=== PATIENT | male | born 1945 | race Caucasian/White ===

== ENCOUNTER 2016-05-17 22:14 | Emergency (ER) | payer MEDICARE, OTHER ==
[~2016-05-17 22:14] MED LIST: AGGRENOX 25 MG-1 CAP PO; ALEVE220 MG; AMLODIPINE BESY10 MG PO; AMOX TR-K CLV1 EAC4 PO; ARIXTRA2.5 MG/0.5 SQ; ASPIR 8181 MG PO; ASPIR-MOX 325325 M1 PO; ASPIRIN EC81 M1 PO; ASPIRIN325 M3 PO; ASPIRIN325 MG PO; ATORVASTATIN CA80 M1 PO; AUGMENTIN 875-1 EAC2 PO; BABY ASPIRIN81 MG PO; BACTRIM DS TAB1 EAC1 PO; BAYER CHILDREN'81 MG; CELEXA20 M1 PO; CELEXA20 M2 PO; CELEXA20 MG PO; CELEXA40 M1 PO; CLINDAMYCIN HC300 MG PO; COMBIVENT1 PUFF INH; COUMADIN3 MG PO; COUMADIN6 MG PO; COZAAR100 M1 PO; COZAAR100 MG PO; CPAP; CRESTOR10 MG; CRESTOR10 MG PO; CRESTOR20 MG PO; DARVOCET-N 1001 EA PO; DARVOCET-N 1001 TAB PO; EXFORGE; EXFORGE 5-160 M1 TAB PO; FEROSUL325 ( 65 ) PO; FISH OIL 1,0001 CA PO; FISH OIL 1,0001 EA10 PO; FISH OIL 1,2001 EAC5 PO; FISH OIL1 CAP PO; FLUOXETINE HCL20 M3 PO; GAVISCON500 MG PO; GEMFIBROZIL600 M2 PO; GLIPIZIDE ER10 M1 PO; GLIPIZIDE ER10 MG PO; GLIPIZIDE ER5 M1 PO; GLIPIZIDE XL2.5 MG PO; GLIPIZIDE10 M2 PO; GLIPIZIDE10 MG PO; GLIPIZIDE5 M2 PO; GLUCOTROL XL10 MG PO; GLUCOTROL XL5 M1 PO; GLUCOTROL XL5 MG PO; HYDROCHLOROTHIA25 M1 PO; IBUPROFEN200 M2 PO; IRON1 TAB PO; IRON325 M3 PO; IRON45 MG PO; JANUVIA100 MG PO; KEFLEX500 M4 PO; LEVAQUIN500 MG PO; LEVETIRACETAM1000 M1 PO; LEVOTHYROXINE88 MC2 PO; LEVOTHYROXINE88 MCG PO; LEXAPRO10 MG PO; LIPITOR40 M1 PO; LISINOPRIL2.5 MG; LISINOPRIL40 MG PO; LOFIBRA160 M1 PO; LOPID600 M1 PO; LOPRESSOR25 MG/TA2 PO; LOSARTAN POTAS100 MG PO; METOPROLOL SUCC50 MG PO; METOPROLOL TART25 M1 PO; METOPROLOL TART25 MG PO; MIRALAX17 G1 PO; MIRALAX17 G2 PO; MULTI VITAMIN1 EAC1 PO; MULTI VITAMIN1 EAC2 PO; MULTIVITAMIN1 TAB PO; NITRO PO; NITROGLYCERIN0.4 M1 SL; NITROGLYCERIN0.4 M2 SL; NORCO 5-325 TA1 EACH PO; NORCO 5/325 TAB1 TAB PO; NORCO 5/3251 TAB PO; NORVASC5 M2 PO; NORVASC5 MG PO; NUCYNTA50 MG PO; OXYCODONE/APAP PO; PERCOCET 5-3251 EACH PO; PHENERGAN25 M1 PO; PRAVACHOL80 M1 PO; PRAVACHOL80 MG PO; PRAVASTATIN SOD80 MG PO; PREDNISONE10 M1 PO; PROZAC40 MG PO; REGLAN5 MG PO; SANDOSTATIN; SANDOSTATIN LAR20 MG IM; SENOKOT8.6 MG PO; SIMVASTATIN40 MG PO; STOOL SOFTNER; SYNTHROID75 MCG PO; SYNTHROID88 MCG PO; TOPROL XL100 MG; TRICOR145 MG; TRIGLIDE160 M1 PO; TRIGLIDE160 MG; TRIGLIDE160 MG PO; TRILIPIX135 MG PO; TYLENOL ARTHRI650 M1 PO; TYLENOL EXTRA500 M1 PO; TYLENOL325 MG; TYLENOL325 MG PO; TYLENOL500 MG PO; VITAMIN D-50000 IU/C PO; VITAMIN D1000 UNIT PO; VITAMIN D250000 UNI1 PO; VITAMIN D35000 UNI3 PO; VITAMIN D350000 UNI1 PO; VITAMIN D50000 UNIT PO; VYTORIN 10/40 T1 TAB; ZESTRIL40 MG; ZOLOFT100 MG
[2016-05-17] MEDS ORDERED: ASPIRIN EC81 MG PO (22:28)
[2016-05-17] MEDS ORDERED: ASPIRIN81 M1 PO (22:28)
[2016-05-17 22:32] LABS: BASO % 0.6 % (0-2); BASO ABSOLUTE COUNT 0.1 tho/cmm (0.0-0.2); EOS % 1.9 % (0-7); EOSINOPHIL ABSOLUTE COUNT 0.2 tho/cmm (0.0-0.7); HCT-HEMATOCRIT 36.2 % (36.0-53.5); HGB-HEMOGLOBIN 12.6 gm/dl (13.5-17.0); IMMATURE GRANULOCYTES ABSOLUTE 0.05 tho/cmm (0-0.03); IMMATURE GRANULOCYTES PERCENT 0.6 % (0-0.3); LYMPH % 25.2 % (20-45); LYMPH ABSOLUTE COUNT 2.2 tho/cmm (0.8-4.5); MCH (MEAN CORPUSCULAR HGB) 29.8 pg (28.0-32.0); MCHC MEAN CORPUSCULAR HGB CONC 34.8 % (32.0-36.0); MCV (MEAN CELL VOLUME) 85.6 fl (82.0-96.0); MEAN PLATELET VOLUME 9.9 cmc (9.4-12.4); MONO % 8.1 % (0-12); MONOCYTE ABSOLUTE COUNT 0.7 tho/cmm (0.0-1.2); NEUTROPHIL ABSOLUTE COUNT 5.7 tho/cmm (1.6-8.0); NEUTROPHIL-AUTOMATED 5.7 tho/cmm (1.6-8.0); NEUTROPHILS % 63.6 % (40-80); PLATELET COUNT 254 tho/cmm (150-450); RED BLOOD COUNT 4.23 mil/cmm (4.40-5.70); RED CELL DISTRIBUTION WIDTH 14.3 % (12.4-16.4); WHITE BLOOD COUNT 8.9 tho/cmm (4.0-10.0)
[2016-05-17 22:44] LABS: ANION GAP 14 mmol/L (0-20); BLOOD UREA NITROGEN 20 mg/dl (6-24); CALCIUM 8.8 mg/dl (8.5-10.5); CARBON DIOXIDE-VENOUS 23 mmol/L (22-32); CHLORIDE 111 mmol/l (96-110); CREATININE 1.17 mg/dl (0.60-1.30); GLUCOSE 130 mg/dL (70-110); POTASSIUM 3.5 mmol/L (3.7-5.1); SODIUM 144 mmol/L (135-145); eGFR VALUE FOR BLACK 73 mL/Min
== END 2016-05-18 00:22 ==
LOC: EDMED 22:14
PROVIDERS: Emergency Medicine
DX: R25.1 Tremor, unspecified (principal); R07.89 Other chest pain; R51 Headache; G40.909 Epilepsy, unspecified, not intractable, without status epilepticus; E03.9 Hypothyroidism, unspecified; Z86.73 Personal history of transient ischemic attack (TIA), and cerebral infarction without residual deficits; Z85.46 Personal history of malignant neoplasm of prostate; Z85.528 Personal history of other malignant neoplasm of kidney; E66.9 Obesity, unspecified; Z79.82 Long term (current) use of aspirin; Z79.890 Hormone replacement therapy; Z79.899 Other long term (current) drug therapy